=== PATIENT | female | born 1970 | race Hispanic/Latino ===

== ENCOUNTER 2016-12-18 14:14 | Emergency (ER) | payer OTHER ==
[~2016-12-18] VITALS: Ht 154.9 cm; Wt 94.5 kg
[~2016-12-18 14:14] MED LIST: AUGMENTIN875 MG PO; BACTRIM,SEPT1 TABLET PO; BENADRYL50 MG PO; BUPROPION XL300 MG PO; CRESTOR20 MG PO; CRESTOR5 MG PO; CYANOCOBAL1000 MCG/2 IM; CYMBALTA30 MG PO; CYMBALTA60 MG PO; ERGOCALCIF50000 UNIT PO; FLAGYL500 MG PO; Feosol PO; HYOSCYAMINE0.125 M2 PO; KLONOPIN0.5 M1 PO; LORAZEPAM1 MG PO; METFORMIN HCL500 M1 PO; MOBIC15 MG PO; NAMENDA XR7 MG PO; NOHOMEMEDS; OMEPRAZOLE40 M1 PO; PEPCID40 MG PO; PERCOCET 5/31 TABLET PO; PLAVIX75 MG PO; PREDNISONE50 MG PO; Percocet 10/325,Endo PO; RISPERDAL2 MG PO; ROBAXIN500 MG PO; ROXICET 5-3251 EACH PO; SEROQUEL200 MG PO; TRAZODONE HCL100 MG PO; TRAZODONE HCL50 MG PO; VITAMIN D PO; WELLBUTRIN XL150 MG PO; ZOFRAN4 MG PO
[2016-12-18 16:56] VITALS: BP 135/81
== END 2016-12-18 16:56 | disposition home or self-care (01) ==
LOC: EME 14:14
DX: S86.812A Strain of other muscle(s) and tendon(s) at lower leg level, left leg, initial encounter (principal); X50.9XXA Other and unspecified overexertion or strenuous movements or postures, initial encounter; E11.9 Type 2 diabetes mellitus without complications; Z79.4 Long term (current) use of insulin; Z98.84 Bariatric surgery status; Z88.6 Allergy status to analgesic agent
CPT/HCPCS: 93971; 99281; 99284; J3010

== ENCOUNTER 2017-10-23 16:45 | Emergency (ER) | payer OTHER ==
[~2017-10-23] VITALS: Ht 154.9 cm; Wt 98.9 kg
[2017-10-23 17:46] LABS: HEMATOCRIT 37.8 % (36.0-46.0); MCH 31.1 PG (29.0-34.0); MCHC 32.3 G/DL (30.0-36.0); MCV 96.4 FL (83-99); MEAN PLAT.VOLUME 9.5 uM^3 (9.5-12.4); PLATELET COUNT 302 K/uL (156-360); RBC DIS.WIDTH-CV 13.2 % (11.8-14.6); RBC DIS.WIDTH-SD 47.2 % (39-53); RED BLOOD COUNT 3.92 M/uL (3.80-5.20); WHITE BLOOD COUNT 8.3 K/uL (4.1-10.2)
[2017-10-23 17:59] LABS: CHLORIDE 110 mEq/L (99-109); SODIUM 141 mEq/L (136-147)
[2017-10-23 18:01] LABS: GLUCOSE 93 mg/dL (70-99)
[2017-10-23 18:02] LABS: ANION GAP 9 MEQ/L (2-14)
[2017-10-23 18:04] LABS: SERUM ETHYL ALCOHOL < 10 mg/dL
[2017-10-23 18:05] LABS: GFR ESTIMATE (CALCULATED) > 59 mL/min/; UREA NITROGEN (BUN) 12 mg/dL (9-23)
[2017-10-23 18:42] LABS: ADD MEDTOX COMMENT Y; AMPHETAMINE NEGATIVE (500 ng/mL); BARBITURATES NEGATIVE (200 ng/mL); BENZODIAZEPINES PRESUMPTIVE POSITIVE (150 ng/mL); COCAINE NEGATIVE (150 ng/mL); INTERNAL CONTROLS VALID? YES; METHADONE NEGATIVE (200 ng/mL); METHAMPHETAMINE NEGATIVE (500 ng/mL); OPIATES (MORPHINE) NEGATIVE (100 ng/mL); OXYCODONE NEGATIVE (100 ng/mL); PHENCYCLIDINE NEGATIVE (25 ng/mL); PROPOXYPHENE NEGATIVE (300 ng/mL); THC CANNABINOIDS NEGATIVE (50 ng/mL); TRICYCLIC ANTIDEPRESSANTS PRESUMPTIVE POSITIVE (300 ng/mL)
[2017-10-23 19:19] LABS: BENZODIAZEPINES QUANT VALUE 0 NG/ML; BENZODIAZEPINES, URINE SCREEN Negative (200 ng/mL)
[2017-10-23] MEDS ORDERED: LYRICA25 MG PO (22:16)
[2017-10-23] MEDS ORDERED: NAMENDA10 MG PO (22:17)
[2017-10-23] MEDS ORDERED: VENLAFAXINE HC150 M1 PO (22:20)
[2017-10-23] MEDS ORDERED: OSPHENA60 MG PO (22:21)
[2017-10-23] MEDS ORDERED: XIIDRA1 EACH BOTH EYES (22:22)
[2017-10-23 22:37] LABS: POINT-OF-CARE METER ID UU14100415
[2017-10-23 23:44] LABS: POINT-OF-CARE METER ID UU14100415
[2017-10-24 12:14] VITALS: BP 94/64
== END 2017-10-24 12:14 ==
LOC: EME 16:45
PROVIDERS: Emergency Medicine
DX: R45.851 Suicidal ideations (principal); F33.2 Major depressive disorder, recurrent severe without psychotic features; F41.9 Anxiety disorder, unspecified; G89.29 Other chronic pain; M54.9 Dorsalgia, unspecified; Z86.73 Personal history of transient ischemic attack (TIA), and cerebral infarction without residual deficits; Z88.6 Allergy status to analgesic agent; Z85.41 Personal history of malignant neoplasm of cervix uteri; Z98.84 Bariatric surgery status
CPT/HCPCS: 80048; 82948; 84999; 85027; 90837; 99281; 99285; G0480